=== PATIENT | female | born 1985 | race Caucasian/White ===

== ENCOUNTER 2017-11-07 13:54 | Observation (INO) | payer MEDICAID ==
[2017-11-07] MEDS ORDERED: Sodium Chloride 0.9% 5 ML Syringe FLUSH PRN (14:22)
[2017-11-07] MEDS ORDERED: Promethazine 12.5 MG in Sodium Chloride 0.9% 50 ML IV PRN (14:22)
[2017-11-07] MEDS ORDERED: Loperamide 2 MG Cap PO PRN (14:48)
[2017-11-07] MEDS: Ondansetron 4 MG/2 ML SDV IV PRN ×2 (14:57→20:36)
[2017-11-07] MEDS ORDERED: Sodium Chloride 0.9% 1,000 ML IV SCH (15:00)
[2017-11-07] MEDS ORDERED: Albuterol HFA 18 Gm Inhaler INH PRN (15:06)
[2017-11-07] MEDS ORDERED: Nicotine 7 MG/24 Hr Patch TRDERM PRN (15:25)
[2017-11-07 15:32] LABS: CHLORIDE,CL 107 mmol/L (98-115); SODIUM,NA 147 mmol/L (136-145)
[2017-11-07] MEDS ORDERED: Iopamidol 612 MG/ML 75 ML Bottle IV PRN (15:45)
[2017-11-07] MEDS ORDERED: Sodium Chloride 0.9% 50 ML IV SCH (15:45)
[2017-11-07] MEDS: Sodium Chloride 0.9% 1,000 ML IV SCH (16:55)
[2017-11-07] MEDS: Acetaminophen 325 MG Tab PO PRN ×2 (18:29→23:11)
[2017-11-08] MEDS: Sodium Chloride 0.9% 1,000 ML IV SCH (01:47)
[2017-11-08] MEDS ORDERED: Promethazine 25 MG/ML SDV IM ONE (08:23)
[2017-11-08] MEDS: Acetaminophen 325 MG Tab PO PRN (12:40)
[2017-11-08] MEDS ORDERED: Ibuprofen 400 MG Tab PO ONE (14:25)
[2017-11-08] MEDS ORDERED: Ketorolac 30 MG/ML SDV IVPUSH PRN (15:03)
--- NOTE | 2017-11-08 15:10 | PCM.PN ---
- General Info Date of Service: 11/08/17 Subjective Update: AM: Patient reports she continues to feel nauseated. No further vomiting or diarrhea episodes. 1500: Patient reports a headache to the top of her head that is making her dizzy and nauseated. She reports a history of migraines, but her migraines are typically frontal. She usually drinks 1 can of Mt Dew per day and has not for a couple days. She typically takes Excedrin Migraine at home with relief. Patient voices concern about going home with a headache. - Review of Systems General: Denies: Fever, Chills HEENT: Reports: Headaches, Other (No photophobia or phonophobia). Denies: Visual Changes Pulmonary: Denies: Shortness of Breath, Cough Cardiovascular: Denies: Chest Pain Gastrointestinal: Reports: Abdominal Pain (upper abdomen), Nausea. Denies: Constipation, Decreased Appetite, Diarrhea, Vomiting Musculoskeletal: Denies: Neck Pain Neurological: Reports: Dizziness, Headache Psychiatric: Denies: Depression Systems Review Comment:: Patient questioned if she feels safe at home and states yes. When asked if there are any stressors or anxiety/depression provoking agents at home right now she states no. - Patient Data Vitals - Most Recent: Last Vital Signs Temp 98.3 F 11/08/17 10:52 Pulse 73 11/08/17 10:52 Resp 14 11/08/17 10:52 BP 92/48 L 11/08/17 10:52 Pulse Ox 98 11/08/17 10:52 Weight - Most Recent: 214 lb 3.2 oz I&O - Last 24 Hours: Intake & Output 11/08/17 11/08/17 11/08/17 06:59 14:59 22:59 Intake Total 2674 400 Output Total 0 Balance 2674 400 Lab Results Last 24 Hours: Laboratory Results - last 24 hr 11/07/17 11/07/17 11/07/17 Range/Units 15:07 15:07 15:07 WBC 5.0 (5.0-10.0) 10^3/uL RBC 4.53 (3.80-5.50) 10^6/uL Hgb 13.1 (12.0-16.0) g/dL Hct 38.6 (37.0-47.0) % MCV 85.3 (82.0-92.0) fL MCH 28.9 (27.0-31.0) pg MCHC 33.9 (32.0-36.0) g/dL RDW 11.9 (11.5-14.5) % Plt Count 196 (150-300) 10^3/uL MPV 8.2 (7.4-10.4) fL Neut % (Auto) 49.0 L (50.0-70.0) % Lymph % (Auto) 39.8 (20.0-40.0) % [place] % (Auto) 8.5 H (2.0-8.0) % Eos % (Auto) 1.8 (1.0-3.0) % Baso % (Auto) 0.9 (0.0-1.0) % Neut # (Auto) 2.5 (2.5-7.0) 10^3/uL Lymph # (Auto) 2.0 (1.0-4.0) 10^3/uL [place] # (Auto) 0.4 (0.1-0.8) 10^3/uL Eos # (Auto) 0.1 (0.1-0.3) 10^3/uL Baso # (Auto) 0.0 (0.0-0.1) 10^3/uL Sodium 147 H (136-145) mmol/L Potassium 3.9 (3.3-5.3) mmol/L Chloride 107 (98-115) mmol/L Carbon Dioxide 27.9 (21.0-32.0) mmol/L BUN 9 (6-25) mg/dL Creatinine 0.63 (0.51-1.17) mg/dL Est Cr Clr Drug Dosing 131.72 mL/min Estimated GFR (MDRD) > 60 mL/min Glucose 87 (70-110) mg/dL Calcium 8.5 L (8.7-10.3) mg/dL Total Bilirubin 0.5 (0.2-1.0) mg/dL AST 17 (15-37) U/L ALT 24 (12-78) U/L Alkaline Phosphatase 53 (46-116) IU/L C-Reactive Protein < 0.2 (0.0-0.9) mg/dL Total Protein 6.3 L (6.4-8.2) g/dL Albumin 3.63 (3.00-4.80) g/dL Med Orders - Current: Current Medications Acetaminophen (Tylenol) 650 mg PO Q4H PRN PRN Reason: Headache/Pain Last Admin: 11/08/17 12:40 Dose: 650 mg Albuterol (Ventolin Hfa) 0 gm INH Q4HR PRN PRN Reason: Shortness of Breath Promethazine HCl 12.5 mg/ (Sodium Chloride) 50.5 mls @ 202 mls/hr IV Q6H PRN PRN Reason: Nausea/Vomiting Ketorolac Tromethamine (Toradol) 30 mg IVPUSH Q6H PRN PRN Reason: Headache Stop: 11/13/17 15:03 Loperamide HCl (Imodium) 2 mg PO Q2H PRN PRN Reason: Diarrhea Nicotine (Habitrol) 7 mg TRDERM DAILY PRN PRN Reason: nicotine dependence Non-Formulary Medication (Escitalopram Oxalate [Lexapro]) 20 mg PO DAILY TANESHA Ondansetron HCl (Zofran) 4 mg IV Q6H PRN PRN Reason: Nausea/Vomiting Last Admin: 11/07/17 20:36 Dose: 4 mg Sodium Chloride (Syrex Flush) 5 ml FLUSH Q8HR PRN PRN Reason: Keep Vein Open Last Admin: 11/07/17 15:00 Dose: 5 ml Discontinued Medications Sodium Chloride (Normal Saline) 1,000 mls @ 999 mls/hr IV .BOLUS [facility] Stop: 11/07/17 16:00 Last Admin: 11/07/17 15:47 Dose: 999 mls/hr Sodium Chloride (Normal Saline) 1,000 mls @ 125 mls/hr IV ASDIRECTED [facility] Last Admin: 11/08/17 01:47 Dose: 125 mls/hr Sodium Chloride (Normal Saline) 50 mls @ 3 mls/sec IV ASDIRECTED TANESHA Stop: 11/07/17 18:00 Last Admin: 11/07/17 16:57 Dose: 3 mls/sec Ibuprofen (Motrin) 800 mg PO ONETIME ONE Stop: 11/08/17 14:26 Last Admin: 11/08/17 14:38 Dose: 800 mg Iopamidol (Isovue-300 (61%)) 75 ml IV . DIRECTED PRN PRN Reason: FOR RADIOLOGY EXAM Stop: 11/07/17 18:00 Last Admin: 11/07/17 16:57 Dose: 75 ml Promethazine HCl (Phenergan) 25 mg IM ONETIME ONE Stop: 11/08/17 08:24 Last Admin: 11/08/17 08:28 Dose: 25 mg - Exam Quality Assessment: No: Supplemental Oxygen, DVT Prophylaxis (Score of 1) General: Alert, Oriented, Cooperative, No Acute Distress HEENT: Pupils Equal, Pupils Reactive, EOMI Lungs: Clear to Auscultation, Normal Respiratory Effort Cardiovascular: Regular Rate, Regular Rhythm, No Murmurs GI/Abdominal Exam: Normal Bowel Sounds, Soft, No Distention, Tender (upper quadrants) Skin: Warm, Dry Neurological: Normal Speech, Other (Toe-to-toe walk wnl; Romberg-mild swaying noted with eyes closed) Psy/Mental Status: Alert, Normal Mood, Depressed. No: Normal Affect (Flat affect), Anxious - Problem List Review Problem List Initiated/Reviewed/Updated: Yes - My Orders Last 24 Hours: My Active Orders 11/08/17 15:02 Communication Order [RC] ROUTINE Orthostatic Vital Signs [RC] ASDIRECTED 11/08/17 15:03 Ketorolac [Toradol] 30 mg IVPUSH Q6H PRN 11/08/17 15:04 Communication Order [RC] ROUTINE 11/08/17 15:15 Escitalopram Oxalate [Lexapro] 20 mg PO DAILY 11/08/17 Dinner Regular Diet [DIET] - Plan Plan:: HPI: This is a 32 year old female who presented to the [facility] yesterday with concerns of 6 days of vomiting and diarrhea. She was seen in clinic on and given IM zofran and 1500 mL of NS IV with unremarkable lab work. She was seen again in the clinic on 11/06/17 for same complaints and given IM zofran with unremarkable labs and an abdominal x-ray that showed mild colonic stool burden. Patient reported intractable vomiting and diarrhea and the inability to keep any fluids down at home. She was admitted to the hospital for further work up with CT and IV fluids for rehydration. Primary Assessment/Plan: Acute headache with dizziness. Around 1400, patient complained of headache to top of head. Has a history of migraines, however she feels this is different. This could be caffeine withdrawal. She has been given tylenol along with ibuprofen 800 mg with minimal improvement. She will be given a can of Mt[place]ena Yu now. Neuro exam unremarkable. Will obtain orthostatic BPs. Toradol 30 mg IV as needed along with tylenol as needed. Intractable nausea, vomiting resolved. This is fitting a viral gastroenteritis picture. WBC 5.0. No vomiting since admission. Continues with nausea, however has been advanced to soft liquid diet and tolerated well. This has been changed to regular diet. Continue zofran IV PRN. Will change IV phenergan to PLO now and scheduled BID dosing. Acute diarrhea, resolved. No further stools since admission. Clinical dehydration, resolved. Creatinine 0.63 on admission with Sodium of 147 and potassium 3.9. Patient was given IV fluids, however these were stopped this morning. She is tolerating oral intake well. Will monitor intake and output. Upper abdominal pain. CT scan negative in regards to this portion. Most likely from viral gastroenteritis. Will give pepcid tonight to see if this helps. Malaise. Physiologic bilateral ovarian cysts. This was the only abnormality noted on CT scan and follow-up US is advised as outpatient. Secondary Assessment/Plan: Tobacco dependence. Nicoderm patch in place. Depression. Restart lexapro today. Obesity. Phentermine on hold. History of migraines. Takes Excedrin Migraine at home, this not available in house. DVT prophylaxis. Score of 1-low risk. Up in [facility]. Overall treatment plan: Patient will continue in observation status today given onset of new type of headache. She will most likely be able to be discharged in the AM. She is to be up in the halls QID and take a shower.
[2017-11-08] MEDS ORDERED: Promethazine Topical Gel 0.5 ML Syringe TOP SCH (15:30)
[2017-11-08] MEDS: Escitalopram 10 MG Tab PO SCH (15:35)
[2017-11-08] MEDS ORDERED: Scopolamine 1.5 MG Transdermal Patch TRDERM SCH (17:00)
[2017-11-08] MEDS ORDERED: Famotidine 20 MG Tab PO ONE (17:30)
[2017-11-09 06:26] VITALS: BP 82/43
[2017-11-09] MEDS: Escitalopram 10 MG Tab PO SCH (08:45)
--- NOTE | 2017-11-09 09:07 | PCM.DCSUM1 ---
Discharge Summary - Hospital Course Brief History: This is a 32 year old female who presented to the [facility] on 11/07/17 with concerns of 6 days of nausea, vomiting and diarrhea. She was seen in the clinic 2 previous days that week for same concerns without improvement. She was admitted to the hospital for IV fluids and further workup with labs and CT scan. - Discharge Data Discharge Date: 11/09/17 Discharge Disposition: Home, Self-Care 01 Condition: Good - Patient Instructions Diet: Regular Diet as Tolerated Activity: As Tolerated Driving: May Drive Today Showering/Bathing: May Shower Notify Provider of: Fever, Increased Pain, Nausea and/or Vomiting Other/Special Instructions: In regards to your headaches, only use tylenol/ ibuprofen/Excedrin Migraine 2 times per week to prevent rebound/medication induced headaches. You will need a follow-up pelvic ultrasound to monitor the ovarian cysts noted on your CT scan. This can be ordered at your follow-up appointment. - Discharge Plan Home Medications: Home Meds Phentermine HCl 30 mg PO QAM 07/12/16 [History] Albuterol [Proair HFA] 1 - 2 puff INH Q4HR PRN 11/07/17 [History] Cetirizine [ZyrTEC] 10 mg PO DAILY 11/07/17 [History] Escitalopram Oxalate [Lexapro] 20 mg PO DAILY 11/07/17 [History] Fluticasone Propionate [Flonase] 2 spray HERRERA DAILY 11/07/17 [History] Ondansetron HCl [Zofran] 1 tab PO TID PRN 11/07/17 [History] Scopolamine [Transderm-Scop] 1.5 mg TRDERM Q72H patch 11/09/17 [Rx] Referrals: Derrick Smith PA-C [Primary Care Provider] - 11/12/17 (At the [facility] ) - Discharge Summary/Plan Comment DC Time >30 min.: No Discharge Summary/Plan Comment: Date of admission: 11/07/17 Date of discharge: 11/09/17 Admitting diagnosis: Primary: Intractable nausea and vomiting, acute diarrhea, malaise, upper abdominal pain, clinical dehydration Secondary: Tobacco dependence, depression, obesity, history of migraines Final diagnosis: Primary: Intractable nausea and vomiting, resolved; Acute diarrhea, resolved ; Malaise, resolved; Upper abdominal pain, resolved; Clinical dehydration, resolved; Acute headache with dizziness, resolved; Bilateral physiologic ovarian cysts Secondary: Tobacco dependence, depression, obesity, history of migraines Procedures performed: None Hospital Course: The patient had an uneventful hospital course. Patient had no further vomiting or diarrhea episodes while hospitalized. She remained afebrile and hemodynamically stable. She continued to have constant nausea. Her IV fluids were discontinued the morning after admission as she was tolerating a clear liquid diet well. She was advanced slowly to full liquids, soft, and eventually a regular diet without an exacerbation in symptoms however continued with the nausea. She was given zofran IV and phenergan IM without relief in nausea. She was then given a scopolamine patch that resolved her symptoms. The day after admission patient developed a headache with dizziness. Orthostatic BPs were negative. She had reported a history of migraines, however this was different. Neuro exam was unremarkable. She was given tylenol and ibuprofen without relief. She is a 1 can of Mt Dew user per day and hadn't had any for several days. She was given 1 can of Mt Dew and had relief in symptoms. Patient continued to have upper abdominal pain without evidence of pathology on CT. She was given pepcid AC 20 mg prior to her evening meal and had relief in symptoms. The only abnormality the CT scan noted was bilateral physiologic ovarian cysts and it was recommended these be follow-up with ultrasound. New medications on discharge: -Scopolamine patch take off on 11/11/17 -Pepcid AC 20 mg po daily 30 minutes prior to evening meal New changes to home medications on discharge: None Regular home medications on discharge: -Phentermine 30 mg po daily AM -Lexapro 20 mg po daily -Zyrtec 10 mg po daily -Flonase 2 sprays nasally daily -Albuterol HFA 1-2 puffs every 4 hours PRN -Zofran 1 tab po TID PRN Condition, Treatment & Final Disposition: The patient is in stable condition at the time of discharge. She will be discharged home today per self. She will follow-up in the [facility] with PAM Nogueira mid-week this week. Considerations at follow-up include pelvic US for further evaluation of ovarian cysts and ensuring patient has had normal BMs. Patient has been instructed to use OTC laxatives if unable to produce BM in 24 hours. - General Info Date of Service: 11/09/17 Subjective Update: Patient states she is feeling well this morning. She feels the scopolamine patch has resolved her nausea and dizziness. Functional Status: Reports: Pain Controlled, Tolerating Diet, Urinating. Denies : New Symptoms - Review of Systems General: Denies: Fever, Malaise, Chills HEENT: Denies: Headaches Pulmonary: Denies: Shortness of Breath Cardiovascular: Denies: Chest Pain Gastrointestinal: Reports: Other (No BM since admission). Denies: Abdominal Pain, Decreased Appetite, Diarrhea, Nausea, Vomiting Genitourinary: Reports: No Symptoms Neurological: Denies: Dizziness, Headache Psychiatric: Reports: No Symptoms - Patient Data Vitals - Most Recent: Last Vital Signs Temp 98.9 F 11/09/17 06:25 Pulse 59 L 11/09/17 06:25 Resp 18 11/09/17 06:25 BP 82/43 L 11/09/17 06:25 Pulse Ox 97 11/09/17 06:25 Orthostatic Blood Pressure [ 99/64 Standing] Orthostatic Blood Pressure [ 97/63 Sitting] Orthostatic Blood Pressure [ 102/59 Supine] Weight - Most Recent: 214 lb 3.2 oz I&O - Last 24 hours: Intake & Output 11/08/17 11/09/17 11/09/17 22:59 06:59 14:59 Intake Total 1610 250 Balance 1610 250 Med Orders - Current: Current Medications Acetaminophen (Tylenol) 650 mg PO Q4H PRN PRN Reason: Headache/Pain Last Admin: 11/08/17 12:40 Dose: 650 mg Albuterol (Ventolin Hfa) 0 gm INH Q4HR PRN PRN Reason: Shortness of Breath Escitalopram Oxalate (Lexapro) 20 mg PO DAILY TANESHA Last Admin: 11/09/17 08:45 Dose: 20 mg Ketorolac Tromethamine (Toradol) 30 mg IVPUSH Q6H PRN PRN Reason: Headache Stop: 11/13/17 15:03 Loperamide HCl (Imodium) 2 mg PO Q2H PRN PRN Reason: Diarrhea Nicotine (Habitrol) 7 mg TRDERM DAILY PRN PRN Reason: nicotine dependence Ondansetron HCl (Zofran) 4 mg IV Q6H PRN PRN Reason: Nausea/Vomiting Last Admin: 11/07/17 20:36 Dose: 4 mg Scopolamine (Transderm-Scop) 1.5 mg TRDERM Q72H TANESHA Last Admin: 11/08/17 17:54 Dose: 1.5 mg Sodium Chloride (Syrex Flush) 5 ml FLUSH Q8HR PRN PRN Reason: Keep Vein Open Last Admin: 11/07/17 15:00 Dose: 5 ml Discontinued Medications Famotidine (Pepcid) 20 mg PO ONETIME ONE Stop: 11/08/17 17:31 Last Admin: 11/08/17 17:17 Dose: 20 mg Promethazine HCl 12.5 mg/ (Sodium Chloride) 50.5 mls @ 202 mls/hr IV Q6H PRN PRN Reason: Nausea/Vomiting Sodium Chloride (Normal Saline) 1,000 mls @ 999 mls/hr IV .BOLUS [facility] Stop: 11/07/17 16:00 Last Admin: 11/07/17 15:47 Dose: 999 mls/hr Sodium Chloride (Normal Saline) 1,000 mls @ 125 mls/hr IV ASDIRECTED [facility] Last Admin: 11/08/17 01:47 Dose: 125 mls/hr Sodium Chloride (Normal Saline) 50 mls @ 3 mls/sec IV ASDIRECTED [facility] Stop: 11/07/17 18:00 Last Admin: 11/07/17 16:57 Dose: 3 mls/sec Ibuprofen (Motrin) 800 mg PO ONETIME ONE Stop: 11/08/17 14:26 Last Admin: 11/08/17 14:38 Dose: 800 mg Iopamidol (Isovue-300 (61%)) 75 ml IV . DIRECTED PRN PRN Reason: FOR RADIOLOGY EXAM Stop: 11/07/17 18:00 Last Admin: 11/07/17 16:57 Dose: 75 ml Promethazine HCl (Phenergan) 25 mg IM ONETIME ONE Stop: 11/08/17 08:24 Last Admin: 11/08/17 08:28 Dose: 25 mg - Exam Quality Assessment: Denies: Supplemental Oxygen, DVT Prophylaxis General: Reports: Alert, Oriented, Cooperative, No Acute Distress Lungs: Reports: Clear to Auscultation, Normal Respiratory Effort Cardiovascular: Reports: Regular Rate, Regular Rhythm, No Murmurs GI/Abdominal Exam: Normal Bowel Sounds, Soft, Non-Tender, No Distention Skin: Reports: Warm, Dry Neurological: Reports: Normal Speech Psy/Mental Status: Reports: Alert, Normal Affect, Normal Mood
== END 2017-11-09 09:25 | disposition home or self-care (01) ==
LOC: KA.MS 13:54
PROVIDERS: ADMIT Family Medicine; ATTEND Family Medicine
DX: R11.2 Nausea with vomiting, unspecified (principal); R19.7 Diarrhea, unspecified; R10.10 Upper abdominal pain, unspecified; E66.9 Obesity, unspecified; Z68.32 Body mass index [BMI] 32.0-32.9, adult; F17.210 Nicotine dependence, cigarettes, uncomplicated; J45.909 Unspecified asthma, uncomplicated; F41.9 Anxiety disorder, unspecified; M51.36 Other intervertebral disc degeneration, lumbar region; F33.40 Major depressive disorder, recurrent, in remission, unspecified; M79.1 Myalgia; Z79.899 Other long term (current) drug therapy; Z88.1 Allergy status to other antibiotic agents; Z88.5 Allergy status to narcotic agent; Z88.8 Allergy status to other drugs, medicaments and biological substances
CPT/HCPCS: 36415; 74177; 80053; 85025; 86140; 96361; 96372; 96374; 96376; A9270-GY; G0378; G0379; J2405; J2550; J7030; J7050; Q9967

== ENCOUNTER 2019-01-10 20:43 | Emergency (ER) | payer MEDICAID, OTHER ==
[2019-01-10 21:04] VITALS: BP 124/57; PULSE 77
[2019-01-10] MEDS ORDERED: Ketorolac 60 MG/2 ML SDV IM ONE (21:22)
[2019-01-10] MEDS ORDERED: LORazepam 2 MG/ML SDV IM ONE (21:22)
[2019-01-10] MEDS ORDERED: traMADol 50 MG Tab PO ONE (21:22)
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
[2019-01-10] MEDS ORDERED: Ketorolac 60 MG/2 ML SDV ONE (21:24)
[2019-01-10] MEDS ORDERED: LORazepam 2 MG/ML SDV ONE (21:25)
== END 2019-01-10 21:40 | disposition home or self-care (01) ==
LOC: KA.ED 20:43
DX: S16.1XXA Strain of muscle, fascia and tendon at neck level, initial encounter (principal); J45.909 Unspecified asthma, uncomplicated; Z88.5 Allergy status to narcotic agent; Z88.8 Allergy status to other drugs, medicaments and biological substances; Z79.899 Other long term (current) drug therapy; X58.XXXA Exposure to other specified factors, initial encounter
CPT/HCPCS: 96372; 99283; A9270; J1885; J2060

== ENCOUNTER 2019-11-04 11:37 | Emergency (ER) | payer OTHER ==
[2019-11-04] MEDS ORDERED: Sodium Chloride 0.9% 10 ML Syringe FLUSH PRN (11:46)
[2019-11-04] MEDS ORDERED: Albuterol/Ipratropium 3.0-0.5 MG/3 ML Neb Soln NEB ONE (11:49)
[2019-11-04 12:34] LABS: ANION GAP 20.2 mmol/L (5-15); CHLORIDE,CL 105 mmol/L (98-115); SODIUM,NA 142 mmol/L (136-145)
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
--- NOTE | 2019-11-04 12:54 | CR ---
[id number] RAD/RAD Chest PA or AP 1V EXAM: RAD Chest PA or AP 1V INDICATION: COUGH. COMPARISON: None. DISCUSSION: Cardiomediastinal silhouette is normal in size and contour. No infiltrate, effusion, pneumothorax, or edema. IMPRESSION: Negative examination of the chest. Prashanth Alcocer MD 11/04/19 2825 Thank you for allowing us to participate in the care of your patient.
[2019-11-04 13:03] VITALS: BP 125/56; PULSE 76
== END 2019-11-04 13:55 | disposition home or self-care (01) ==
LOC: KA.ED 11:37
DX: U07.1 COVID-19 (principal); J45.909 Unspecified asthma, uncomplicated; F31.9 Bipolar disorder, unspecified; F41.9 Anxiety disorder, unspecified; E66.9 Obesity, unspecified; Z68.36 Body mass index [BMI] 36.0-36.9, adult; Z88.5 Allergy status to narcotic agent; Z88.2 Allergy status to sulfonamides; Z88.8 Allergy status to other drugs, medicaments and biological substances; Z79.899 Other long term (current) drug therapy
CPT/HCPCS: 36415; 71045; 80048; 81001; 83605; 85025; 94640; 99285-25; J7620-GY; U0002

== ENCOUNTER 2022-09-11 17:25 | Emergency (ER) | payer MEDICAID, OTHER ==
[2022-09-11] MEDS: Sodium Chloride 0.9% 1,000 ML IV ONE (18:05)
[2022-09-11] MEDS: Ondansetron 4 MG/2 ML SDV IVPUSH ONE ×2 (18:07→19:10)
[2022-09-11] MEDS: Sodium Chloride 0.9% 1,000 ML ONE (18:22)
[2022-09-11] MEDS: Ondansetron 4 MG/2 ML SDV ONE (18:22)
[2022-09-11] MEDS: Prochlorperazine 10 MG in Sodium Chloride 0.9% 50 ML IV ONE (19:40)
[2022-09-11 20:17] VITALS: BP 110/70; PULSE 90
== END 2022-09-11 20:25 | disposition home or self-care (01) ==
LOC: KA.ED 17:25
DX: R11.2 Nausea with vomiting, unspecified (principal); J45.909 Unspecified asthma, uncomplicated; E66.9 Obesity, unspecified; Z68.41 Body mass index [BMI] 40.0-44.9, adult; Z88.1 Allergy status to other antibiotic agents
CPT/HCPCS: 80053; 81001; 85025; 96361; 96365; 96375; 96376; 99284-25; J0780; J2405; J7030